=== PATIENT | male | born 1955 | race African-American/Black ===

== ENCOUNTER 2017-03-03 00:54 | Emergency (ER) | payer OTHER ==
[~2017-03-03] VITALS: Ht 177.8 cm; Wt 76.2 kg
[2017-03-03 01:46] VITALS: BP 153/98
== END 2017-03-03 01:46 | disposition other institution (70) ==
LOC: ED 00:54
DX: Z02.89 Encounter for other administrative examinations (principal); I10 Essential (primary) hypertension; E78.00 Pure hypercholesterolemia, unspecified; F32.9 Major depressive disorder, single episode, unspecified